=== PATIENT | male | born 1945 | race Caucasian/White ===

== ENCOUNTER 2019-01-24 11:17 | Observation (INO) | payer OTHER, MEDICARE ==
--- NOTE | 2019-01-24 11:54 | RAD REPORT ---
EXAM DESCRIPTION: RAD - Chest Single View - 01/24/2019 11:40 am CLINICAL HISTORY: CHEST PAIN Chest pain. COMPARISON: CHEST PA AND LAT 2 VIEW dated 10/02/2014; CHEST PA AND LAT 2 VIEW dated 04/07/2014; CHEST SINGLE VIEW dated 02/07/2013; CHEST PA AND LAT 2 VIEW dated 05/18/2006 FINDINGS: Portable technique limits examination quality. Mild bilateral pulmonary opacities are present likely representing pulmonary edema. The heart is mild ly enlarged in size. No displaced fractures.Sternotomy wires present. IMPRESSION: Mild CHF.
[2019-01-24 12:14] LABS: Absolute Lymphocytes (CBC) 1.4 K/uL (0.7-4.9); Hematocrit 43.4 % (39.6-49.0); Lymphocytes % 13.4 % (15.3-44.8); RBC Red Blood Cell Count 4.89 M/uL (4.33-5.43)
[2019-01-24 12:22] LABS: Protime INR 1.01
[2019-01-24 12:45] LABS: Albumin 3.5 g/dL (3.4-5.0); Bilirubin Direct 0.4 mg/dL (0-0.2); Bilirubin Total 2.2 mg/dL (0.2-1.0); Magnesium 2.2 mg/dL (1.8-2.4); Potassium 3.7 mmol/L (3.5-5.1); Protein, Total 6.8 g/dL (6.4-8.2); Troponin (Emerg Dept Use Only) 0.02 ng/mL (0.0-0.045)
--- NOTE | 2019-01-24 13:34 | EKG ---
Test Date: 2019-01-24 Test Time: 11:32:11 Form Grader: JEANNE MEASUREMENT RESULTS: Intervals: Rate: 49 NH: 196 QRSD: 134 QT: 486 QTc: 439 [place]: P: 58 NH: 196 QRS: 117 T: 23 INTERPRETIVE STATEMENTS: Marked sinus bradycardia Nonspecific intraventricular block Lateral infarct, age undetermined Abnormal ECG Compared to ECG 03/08/2015 02:58:34 Myocardial infarct finding now present Incomplete right bundle-branch block no longer present ST (T wave) deviation no longer present Possible ischemia no longer present Electronically Signed On 01-24-19 13:33:56 CDT by Daniele Manriquez
--- NOTE | 2019-01-24 13:54 | ER ---
Nurse's Notes [facility] Name: Kaleb Bullock Age: 73 yrs Sex: Male : 1945 Arrival Date: 01/24/2019 Time: 11:17 Bed 19 Private MD: Diagnosis: Hypertensive urgency, Chest pain, bradycardia, CHF, renal failure Presentation: 01/24 11:18 Presenting complaint: Patient states: "i just came from my PCP and they sent me here due to my hi blood pressure, but i also have chest tightness that started this morning" denies SOB; denies N/V;. Transition of care: patient was not received from another setting of care. Onset of symptoms was January 24, 2019. Risk Assessment: Do you want to hurt yourself or someone else? Patient reports no desire to harm self or others. Initial Sepsis Screen: Does the patient meet any 2 criteria? No. Patient's initial sepsis screen is negative. Does the patient have a suspected source of infection? No. Patient's initial sepsis screen is negative. Care prior to arrival: None. 11:18 Method Of Arrival: Ambulatory 11:18 Acuity: ALEXA 3 hj Historical: - Allergies: 11:22 No Known Drug Allergies; hj - PMHx: 11:22 Hypertension; hj - PSHx: 11:22 CABG; Cholecystectomy; rotator cuff; hj - Immunization history:: Adult Immunizations unknown. - Social history:: Smoking status: Patient/guardian denies using tobacco. - Ebola Screening: : No symptoms or risks identified at this time. Screenin:40 Abuse screen: Denies threats or abuse. Denies injuries from another. Nutritional ph screening: No deficits noted. Tuberculosis screening: No symptoms or risk factors identified. Fall Risk None identified. Assessment: 11:37 General: Appears in no apparent distress. comfortable, well groomed, Behavior is calm, ph cooperative, appropriate for age, Denies fever, feeling ill. Pain: Complains of pain in left lateral anterior chest Pain does not radiate. Neuro: Level of Consciousness is awake, alert, obeys commands, Oriented to person, place, time, situation, Moves all extremities. Full function Speech is normal, Facial symmetry appears normal, Denies weakness blurred vision dizziness, headache. Cardiovascular: Reports chest pain, Denies lightheadedness, nausea, palpitations, shortness of breath, Capillary refill < 3 seconds in bilateral fingers Patient's skin is warm and dry. Rhythm is sinus bradycardia Chest pain is located in left lateral chest. Respiratory: Airway is patent Respiratory effort is even, unlabored, Respiratory pattern is regular, symmetrical, Denies shortness of breath. GI: No signs and/or symptoms were reported involving the gastrointestinal system. EENT: Reports nasal congestion. Derm: Skin is intact, is healthy with good turgor, Skin is pink, warm \\T\\ dry. Musculoskeletal: Circulation, motion, and sensation intact. Range of motion: intact in all extremities. 12:30 Reassessment: Patient appears in no apparent distress at this time. Patient and/or ph family updated on plan of care and expected duration. Pain level reassessed. Patient is alert, oriented x 3, equal unlabored respirations, skin warm/dry/pink. 13:30 Reassessment: Patient appears in no apparent distress at this time. Patient and/or ph family updated on plan of care and expected duration. Pain level reassessed. Patient is alert, oriented x 3, equal unlabored respirations, skin warm/dry/pink. 14:00 Reassessment: Patient appears in no apparent distress at this time. Patient and/or ph family updated on plan of care and expected duration. Pain level reassessed. Patient is alert, oriented x 3, equal unlabored respirations, skin warm/dry/pink. Dr Dobbins at bedside to speak w/ pt about being admitted to hospital, pt states, " Well I don't want to stay, I feel fine and want to go home. Watch my blood pressure was fine but now it'll go up again because I'm pissed off." BP noted to have increased to 190s systolic, up from 150s. 14:30 Reassessment: Patient appears in no apparent distress at this time. Patient and/or ph family updated on plan of care and expected duration. Pain level reassessed. Patient is alert, oriented x 3, equal unlabored respirations, skin warm/dry/pink. Repeat troponin drawn and sent to lab, pt again states that he does not wish to be admitted, ERP notified. 16:00 Reassessment: Patient appears in no apparent distress at this time. Patient and/or ph family updated on plan of care and expected duration. Pain level reassessed. Patient is alert, oriented x 3, equal unlabored respirations, skin warm/dry/pink. Dr Malin at bedside to speak w/ pt, pt agrees to be admitted for further testing. 17:16 Reassessment: Patient appears in no apparent distress at this time. Patient and/or ph family updated on plan of care and expected duration. Pain level reassessed. Patient is alert, oriented x 3, equal unlabored respirations, skin warm/dry/pink. Attempted to call report to 4th floor, placed on hold > 5 minutes, will attempt again. 17:50 Reassessment: Patient appears in no apparent distress at this time. Patient and/or ph family updated on plan of care and expected duration. Pain level reassessed. Patient is alert, oriented x 3, equal unlabored respirations, skin warm/dry/pink. Report called to Maribel GOODWIN. Vital Signs: 11:22 BP 190 / 96; Pulse 50; Resp 18; Temp 99.2(TE); Pulse Ox 97% on R/A; Weight 83.91 kg; hj Height 5 ft. 8 in. (172.72 cm); Pain 0/10; 12:30 BP 165 / 69; Pulse 50; Resp 18; Pulse Ox 97% on R/A; ph 13:16 BP 153 / 67; Pulse 49; Resp 18; Pulse Ox 98% on R/A; ph 14:15 BP 191 / 74; Pulse 48; Resp 18; Pulse Ox 97% on R/A; ph 14:55 BP 175 / 71; Pulse 48; Resp 16; Pulse Ox 98% on R/A; ph 16:00 BP 181 / 70; Pulse 50; Resp 18; Temp 97.8; Pulse Ox 97% on R/A; ph 17:00 BP 178 / 72; Pulse 49; Resp 16; Temp 97.8; Pulse Ox 96% on R/A; ph 11:22 Body Mass Index 28.13 (83.91 kg, 172.72 cm) Vitals: 14:15 Cardiac Rhythm Assessment Sinus belinda. ph ED Course: 11:17 Patient arrived in ED. dl4 11:21 Triage completed. hj 11:22 Fritz Malin MD is Attending Physician. kdr 11:22 Arm band placed on left wrist. hj 11:24 Salma Cormier, CHRISTA is Primary Nurse. ph 11:32 EKG done, by injection maintenance technician. reviewed by Fritz Malin MD. sm3 11:37 Inserted saline lock: 20 gauge in right forearm, using aseptic technique. ph 11:38 X-ray completed. Portable x-ray completed in exam room. Patient tolerated procedure sw well. 11:43 XRAY Chest (1 view) In Process Unspecified. EDMS 13:52 Theron Dobbins MD is Hospitalizing Provider. kdr 17:14 Patient has correct armband on for positive identification. Placed in gown. Bed in low ph position. Call light in reach. Side rails up X2. equipment monitor phototypesetting on. Pulse ox on. NIBP on. Door closed. Noise minimized. Warm blanket given. Head of bed elevated. 17:15 No provider procedures requiring assistance completed. Patient admitted, IV remains in ph place. Administered Medications: No medications were administered Outcome: 13:53 Decision to Hospitalize by Provider. kdr 17:15 Admitted to Tele accompanied by tech, via wheelchair, room 407, with chart. ph 17:15 Condition: stable 18:03 Patient left the ED. ph Signatures: Dispatcher [employer] EDMS Fritz Malin MD MD kdr Hall, Patricia RN RN Katia Brasher Henry, RN RN Aida Milan 3 Bandar Martinez dl4 Corrections: (The following items were deleted from the chart) 11:24 11:22 Pulse 50bpm; Resp 18bpm; Pulse Ox 97% RA; Temp 99.2F Temporal; 83.91 kg; Height 5 hj ft. 8 in.; BMI: 28.1; Pain 0/10; hj
--- NOTE | 2019-01-24 13:54 | EDPHYS ---
Physician Documentation [facility] Name: Kaleb Bullock Age: 73 yrs Sex: Male : 1945 Arrival Date: 01/24/2019 Time: 11:17 Bed 19 Private MD: ED Physician Fritz Malin HPI: 01/24 13:54 This 73 yrs old Male presents to ER via Ambulatory with complaints of Chest kdr Pain. 13:54 The patient or guardian reports chest pain that is located primarily in the anterior kdr chest wall, left. Onset: suddenly, today. The pain does not radiate. Associated signs and symptoms: The patient has no apparent associated signs or symptoms. The chest pain is described as burning, sharp. Duration: The patient or guardian reports a single episode, that lasted 30 minute(s). Modifying factors: The symptoms are alleviated by nothing. the symptoms are aggravated by nothing. Severity of pain: At its worst the pain was severe in the emergency department the pain has resolved. The patient has not experienced similar symptoms in the past. 13:54 When the patient presented to [facility], his SBP was over 200 and he was sent to the [facility] ED. Dr. Dobbins called at the time of his arrival. Historical: - Allergies: 11:22 No Known Drug Allergies; hj - PMHx: 11:22 Hypertension; hj - PSHx: 11:22 CABG; Cholecystectomy; rotator cuff; hj - Immunization history:: Adult Immunizations unknown. - Social history:: Smoking status: Patient/guardian denies using tobacco. - Ebola Screening: : No symptoms or risks identified at this time. ROS: 13:54 Constitutional: Negative for fever, chills, and weight loss, Eyes: Negative for injury, kdr pain, redness, and discharge, ENT: Negative for injury, pain, and discharge, Neck: Negative for injury, pain, and swelling, Respiratory: Negative for shortness of breath, cough, wheezing, and pleuritic chest pain, Abdomen/GI: Negative for abdominal pain, nausea, vomiting, diarrhea, and constipation, Back: Negative for injury and pain, : Negative for injury, bleeding, discharge, and swelling, MS/Extremity: Negative for injury and deformity, Skin: Negative for injury, rash, and discoloration, Neuro: Negative for headache, weakness, numbness, tingling, and seizure activity. Psych: Negative for depression, anxiety, suicide ideation, homicidal ideation, and hallucinations, Allergy/Immunology: Negative for hives, rash, and allergies, Endocrine: Negative for neck swelling, polydipsia, polyuria, polyphagia, and marked weight changes, Hematologic/Lymphatic: Negative for swollen nodes, abnormal bleeding, and unusual bruising. Exam: 13:54 Constitutional: This is a well developed, well nourished patient who is awake, alert, kdr and in no acute distress. Head/Face: Normocephalic, atraumatic. Eyes: Pupils equal round and reactive to light, extra-ocular motions intact. Lids and lashes normal. Conjunctiva and sclera are non-icteric and not injected. Cornea within normal limits. Periorbital areas with no swelling, redness, or edema. Neck: Trachea midline, no thyromegaly or masses palpated, and no cervical lymphadenopathy. Supple, full range of motion without nuchal rigidity, or vertebral point tenderness. No Meningismus. Cardiovascular: Regular rate and rhythm with a normal S1 and S2. No gallops, murmurs, or rubs. Normal PMI, no JVD. No pulse deficits. Respiratory: Lungs have equal breath sounds bilaterally, clear to auscultation and percussion. No rales, rhonchi or wheezes noted. No increased work of breathing, no retractions or nasal flaring. Abdomen/GI: Soft, non-tender, with normal bowel sounds. No distension or tympany. No guarding or rebound. No evidence of tenderness throughout. Back: No spinal tenderness. No costovertebral tenderness. Full range of motion. Skin: Warm, dry with normal turgor. Normal color with no rashes, no lesions, and no evidence of cellulitis. MS/ Extremity: Pulses equal, no cyanosis. Neurovascular intact. Full, normal range of motion. Neuro: Awake and alert, GCS 15, oriented to person, place, time, and situation. Cranial nerves II-XII grossly intact. Motor strength 5/5 in all extremities. Sensory grossly intact. Cerebellar exam normal. Normal gait. Psych: Awake, alert, with orientation to person, place and time. Behavior, mood, and affect are within normal limits. 13:54 Chest/axilla: Inspection: normal, Palpation: is normal, Axilla: are normal. Vital Signs: 11:22 BP 190 / 96; Pulse 50; Resp 18; Temp 99.2(TE); Pulse Ox 97% on R/A; Weight 83.91 kg; hj Height 5 ft. 8 in. (172.72 cm); Pain 0/10; 12:30 BP 165 / 69; Pulse 50; Resp 18; Pulse Ox 97% on R/A; ph 13:16 BP 153 / 67; Pulse 49; Resp 18; Pulse Ox 98% on R/A; ph 14:15 BP 191 / 74; Pulse 48; Resp 18; Pulse Ox 97% on R/A; ph 14:55 BP 175 / 71; Pulse 48; Resp 16; Pulse Ox 98% on R/A; ph 16:00 BP 181 / 70; Pulse 50; Resp 18; Temp 97.8; Pulse Ox 97% on R/A; ph 17:00 BP 178 / 72; Pulse 49; Resp 16; Temp 97.8; Pulse Ox 96% on R/A; ph 11:22 Body Mass Index 28.13 (83.91 kg, 172.72 cm) hj MDM: 11:20 Physician consultation: Theron Dobbins MD was called at 11:15, was contacted at 11:15, snw would like consultation with Cardiology, Dr. Dobbins saw pt in his office this am. +HTN, cardiac hx. Request pt be admitted with consult to cardiology. 13:53 Patient medically screened. kdr 13:54 HEART Score: History: Moderately Suspicious (1), ECG: Non specific repolarization kdr disturbance / LBTB / PM (1), Age: > or = 65 years (2), Risk Factors: 1 or 2 risk factors (1), [Hypertension]. Data reviewed: vital signs, nurses notes. 01/24 11:20 Order name: Basic Metabolic Panel; Complete Time: 13:22 snw 01/24 11:20 Order name: CBC with Diff; Complete Time: 13:22 snw 01/24 11:20 Order name: LFT's; Complete Time: 13:22 snw 01/24 11:20 Order name: Magnesium; Complete Time: 13:22 snw 01/24 11:20 Order name: NT PRO-BNP; Complete Time: 13:22 w 01/24 11:20 Order name: PT-INR; Complete Time: 13:22 snw 01/24 11:20 Order name: Troponin (emerg Dept Use Only); Complete Time: 13:22 snw 01/24 13:23 Order name: Troponin (emerg Dept Use Only); Complete Time: 15:51 kdr 01/24 16:07 Order name: Hemoglobin A1c [facility] 01/24 16:07 Order name: Lipid Profile [facility] 01/24 16:07 Order name: Troponin I [facility] 01/24 16:07 Order name: Thyroid Stimulating Hormone [facility] 01/24 16:07 Order name: CBC with Automated Diff [facility] 01/24 16:08 Order name: CBC with Automated Diff EDMS 01/24 11:20 Order name: XRAY Chest (1 view); Complete Time: 13:22 w 01/24 11:20 Order name: EKG; Complete Time: 11:24 01/24 11:20 Order name: Cardiac monitoring; Complete Time: 11:30 w 01/24 11:20 Order name: EKG - Nurse/Tech; Complete Time: 11:30 w 01/24 11:20 Order name: IV Saline Lock; Complete Time: 11:36 w 01/24 11:20 Order name: Labs collected and sent; Complete Time: 11:37 w 01/24 11:20 Order name: O2 Per Protocol; Complete Time: 11:30 w 01/24 11:20 Order name: O2 Sat Monitoring; Complete Time: 11:30 w 01/24 16:11 Order name: CONS Physician Consult [facility]MI 01/24 16:08 Order name: CBC with Automated Diff [facility] 01/24 16:08 Order name: CBC with Automated Diff [facility] 01/24 16:08 Order name: Comprehensive Metabolic Panel [facility] 01/24 16:08 Order name: Comprehensive Metabolic Panel [facility] 01/24 16:08 Order name: Comprehensive Metabolic Panel [facility] 01/24 16:08 Order name: Comprehensive Metabolic Panel [facility] Administered Medications: No medications were administered Disposition: 13:52 Co-signature as Attending Physician, Fritz Malin MD I agree with the assessment and kdr plan of care. Disposition: 01/24/19 13:53 Hospitalization ordered by Theron Dobbins for Inpatient Admission. Preliminary diagnosis is Hypertensive urgency, Chest pain, bradycardia, CHF, renal failure. - Bed requested for Telemetry/MedSurg (Inpatient). - Status is Inpatient Admission. ph - Condition is Fair. - Problem is new. - Symptoms have improved. UTI on Admission? No Signatures: Dispatcher [employer] EDMS Aliza cope Fritz Henson MD MD [facility] Reina Pacheco, BEADING INSTALLER-C BEADING INSTALLER-Csnw Salma Cormier, RN RN Suhail Cruz RN RN Corrections: (The following items were deleted from the chart) 16:50 13:53 Hospitalization Ordered by Theron Dobbins MD for Inpatient Admission. Preliminary bd diagnosis is Hypertensive urgency, Chest pain, bradycardia, CHF, renal failure. Bed requested for Telemetry/MedSurg (Inpatient). Status is Inpatient Admission. Condition is Fair. Problem is new. Symptoms have improved. UTI on Admission? No. kdr 18:03 16:50 01/24/2019 13:53 Hospitalization Ordered by Theron Dobbins MD for Inpatient ph Admission. Preliminary diagnosis is Hypertensive urgency, Chest pain, bradycardia, CHF, renal failure. Bed requested for Telemetry/MedSurg (Inpatient). Status is Inpatient Admission. Condition is Fair. Problem is new. Symptoms have improved. UTI on Admission? No. bd
--- NOTE | 2019-01-24 16:26 | P.HP ---
Certification for Inpatient Patient admitted to: Inpatient With expected LOS: >2 Midnights Patient will require the following post-hospital care: None Practitioner: I am a practitioner with admitting privileges, knowledge of patient current condition, hospital course, and medical plan of care. Services: Services provided to patient in accordance with Admission requirements found in Title 42 Section 412.3 of the Code of Federal Regulations Patient History Date of Service: 01/24/19 Primary Care Provider: Giovana [facility]ales Reason for admission: unstable Angina History of Present Illness: Patient of [facility]. Past history of cad with 5 stents and htn. He was seeing elevated bp at home. The patient came to the office. He was also having left sided chest pain. He was found to have a blood pressure of 210/86 An luba was taken in the office and was borderline. Some widening of the qrs. Was sent to the Emergency room. He had objections, however the friend who brought him to the hospital was agreeable. The patient was found to have an elevated bnp and creatine. He was also bradycardic in the ER. staying in the 40's. he had a HR o 59 in the office. Discussed with Dr. Irizarry and decided to admit for cardiology and possible stress test. The patient did not seem to want to do this again. Allergies No Known Drug Allergies Allergy (Unverified 03/15/15 10:27) Unknown Review of Systems 10-point ROS is otherwise unremarkable Cardiovascular: Chest Pain Physical Examination - Physical Exam General: Alert, Mild distress HEENT: Atraumatic, PERRLA, Mucous membr. moist/pink, EOMI, Sclerae nonicteric Neck: Supple, 2+ carotid pulse no bruit, No LAD, Without JVD or thyroid abnormality Respiratory: Clear to auscultation bilaterally, Normal air movement Cardiovascular: Regular rate/rhythm, Normal S1 S2 Gastrointestinal: Normal bowel sounds, No tenderness Musculoskeletal: No tenderness Integumentary: No rashes Neurological: Normal gait, Normal speech, Normal strength at 5/5 x4 extr, Normal tone, Normal affect Lymphatics: No axilla or inguinal lymphadenopathy - Studies Laboratory Data (last 24 hrs) 01/24/19 11:35: PT 11.9, INR 1.01 01/24/19 11:35: WBC 10.3, Hgb 15.1, Hct 43.4, Plt Count 166 01/24/19 11:35: Sodium 145, Potassium 3.7, BUN 27 H, Creatinine 1.42 H, Glucose 114 H, Magnesium 2.2, Total Bilirubin 2.2 H, AST 23, ALT 27, Alkaline Phosphatase 136 H Assessment and Plan - Problems (Diagnosis) (1) Unstable angina Current Visit: Yes Status: Acute Plan: Will admit to the hospital. Hold the betablockers due to the bradycardia. Start lovenox and consult cardiology. (2) HTN (hypertension) Current Visit: Yes Status: Acute Plan: will substitute diovan for olemasartan. Hold the carvedilol due to the bradycardia. Will adjust as necesary. Qualifiers: Hypertension type: essential hypertension Qualified Code(s): I10 - Essential (primary) hypertension (3) Nicotine addiction Current Visit: Yes Status: Acute Plan: will start a nicotine patch in the morning. Will hold off tonight as he may be having an acute coronary syndrome. Qualifiers: Nicotine product type: cigarettes Discharge Plan: Home Plan to discharge in: 48 Hours - Advance Directives Does patient have a Living Will: No Does patient have a Durable POA for Healthcare: No - Code Status/Comfort Care Code Status Assessed: No Code Status: Full Code Physician Review: Patient Assessed, Agree with Above Assessment and Plan Critical Care: No Time Spent Managing Pts Care (In Minutes): 75
[2019-01-24] MEDS: ENOXAPARIN 80 MG/0.8 ML SQ SCH (18:00)
[2019-01-24] MEDS ORDERED: CARVEDILOL 12.5 MG TAB PO SCH (18:00)
[2019-01-24 18:29] VITALS: O2SAT 97
[2019-01-24] MEDS ORDERED: HYDRALAZINE HCL 20 MG/ML VIAL IV PRN (20:33)
[2019-01-25 00:21] VITALS: BMI 28.0
[2019-01-25 02:32] LABS: Urine Appearance CLEAR; Urine Bilirubin NEGATIVE (NEG); Urine Blood NEGATIVE (NEG); Urine Color YELLOW; Urine Glucose NEGATIVE (NEG); Urine Protein 1+ (NEG); Urine Urobilinogen 0.2 mg/dL (0.2-1.0)
[2019-01-25 03:08] LABS: Urine Microscopic Reflex ORDER UMIC
[2019-01-25 03:52] LABS: Urine Bacteria <20 /HPF (NONE SEEN); Urine Culture Reflex Order REFLEXED; Urine RBC <5 /HPF (NONE SEEN)
[2019-01-25] MEDS: ENOXAPARIN 80 MG/0.8 ML SQ SCH (05:59)
[2019-01-25 06:12] LABS: Absolute Lymphocytes (CBC) 1.5 K/uL (0.7-4.9); Basophils % 1.3 % (0-1.3); Hematocrit 40.1 % (39.6-49.0); Lymphocytes % 16.9 % (15.3-44.8); RBC Red Blood Cell Count 4.56 M/uL (4.33-5.43)
[2019-01-25 06:38] LABS: Albumin 3.2 g/dL (3.4-5.0); Bilirubin Total 2.6 mg/dL (0.2-1.0); Potassium 3.8 mmol/L (3.5-5.1); Protein, Total 6.3 g/dL (6.4-8.2); Thyroid Stimulating Hormone 0.328 uIU/mL (0.360-3.740)
--- NOTE | 2019-01-25 08:43 | P.DS ---
Admission Date: 01/24/19 Discharge Date: 01/25/19 Primary Care Provider: Giovana Morales Disposition: ROUTINE DISCHARGE Discharge Condition: FAIR Reason for Admission: unstable Angina - Problems (1) Unstable angina Current Visit: Yes Status: Acute (2) HTN (hypertension) Current Visit: Yes Status: Acute Qualifiers: Hypertension type: essential hypertension Qualified Code(s): I10 - Essential (primary) hypertension (3) Nicotine addiction Current Visit: Yes Status: Acute Qualifiers: Nicotine product type: cigarettes Brief History of Present Illness: Patient of Bry Morales. Past history of cad with 5 stents and htn. He was seeing elevated bp at home. The patient came to the office. He was also having left sided chest pain. He was found to have a blood pressure of 210/86 An luba was taken in the office and was borderline. Some widening of the qrs. Was sent to the Emergency room. He had objections, however the friend who brought him to the hospital was agreeable. The patient was found to have an elevated bnp and creatine. He was also bradycardic in the ER. staying in the 40's. he had a HR o 59 in the office. Discussed with Dr. Irizarry and decided to admit for cardiology and possible stress test. The patient did not seem to want to do this again. Hospital Course: admitted to the hospital. Had negative troponins. Seen by Dr. Rivera. Plan for an out patient follow up with Cardiology. He is not very complaint. Will need a Solid Waste Disposal Manager close to him. Will reduce the coreg from 12.5 to 3.125mg and have the patient follow up with Bry Morales. Thank you for allowing me to take part in the patient's care. Vital Signs/Physical Exam: Temp Pulse Resp BP Pulse Ox 97.6 F 47 L 16 167/91 H 97 01/25/19 07:37 01/25/19 07:37 01/25/19 07:37 01/25/19 07:37 01/25/19 07:37 General: Alert, In no apparent distress HEENT: Atraumatic, PERRLA, EOMI Neck: Supple, JVD not distended Respiratory: Clear to auscultation bilaterally, Normal air movement Cardiovascular: Regular rate/rhythm, Normal S1 S2 Gastrointestinal: Normal bowel sounds, No tenderness Musculoskeletal: No tenderness Integumentary: No rashes Neurological: Normal speech, Normal tone, Normal affect Lymphatics: No axilla or inguinal lymphadenopathy Laboratory Data at Discharge: WBC 9.1 K/uL (4.3-10.9) 01/25/19 05:39 Hgb 13.9 g/dL (13.6-17.9) 01/25/19 05:39 Hct 40.1 % (39.6-49.0) 01/25/19 05:39 Plt Count 149 K/uL (152-406) L 01/25/19 05:39 PT 11.9 SECONDS (9.5-12.5) 01/24/19 11:35 INR 1.01 01/24/19 11:35 Sodium 146 mmol/L (136-145) H 01/25/19 05:39 Potassium 3.8 mmol/L (3.5-5.1) 01/25/19 05:39 BUN 22 mg/dL (7-18) H 01/25/19 05:39 Creatinine 1.21 mg/dL (0.55-1.3) 01/25/19 05:39 Glucose 92 mg/dL (74-106) 01/25/19 05:39 Magnesium 2.2 mg/dL (1.8-2.4) 01/24/19 11:35 Total Bilirubin 2.6 mg/dL (0.2-1.0) H 01/25/19 05:39 AST 21 U/L (15-37) 01/25/19 05:39 ALT 28 U/L (12-78) 01/25/19 05:39 Alkaline Phosphatase 78 U/L (45-117) 01/25/19 05:39 Troponin I 0.02 ng/mL (0.0-0.045) 01/24/19 20:28 Triglycerides 80 mg/dL (<150) 01/25/19 05:39 Cholesterol 122 mg/dL (<200) 01/25/19 05:39 HDL Cholesterol 38 mg/dL (40-60) L 01/25/19 05:39 Cholesterol/HDL Ratio 3.21 01/25/19 05:39 Home Medications: Carvedilol [Coreg*] 3.125 mg PO BID #60 tab 01/25/19 New Medications: Carvedilol [Coreg*] 3.125 mg PO BID #60 tab Diet: AHA Activity: Ad fortunato Time spent managing pt's care (in minutes): 30
[2019-01-25] MEDS ORDERED: ASPIRIN EC 81 MG TAB PO SCH (09:00)
[2019-01-25] MEDS ORDERED: VALSARTAN 80 MG TAB PO SCH (09:00)
[2019-01-25 12:37] VITALS: BP 168/88; TEMP 97
--- NOTE | 2019-01-25 13:54 | CON ---
History Of Present Illness: A 73-year-old man came to the hospital because his blood pressure was el evated. He was not feeling bad, really did not want to come. He has a remote history of bypass surg benjamin at least 15 years ago. It was done at a hospital in the [facility]. We have no records. Since then, he has had very little followup. He does take a blood pressure medicine at home. I thi nk carvedilol is his only medicine. It is 12.5 b.i.d. and probably should be changed to a lower dose with the addition of other medicine to control his blood pressure. He is not on a statin, not takin g aspirin. He saw a trial management associate and decided not to go back and see that trial management associate, but has not m serafin any appointments to see. Another heart doctor encouraged him to have regular followup. Ideally, he would be on aspirin and a statin, probably an angiotensin receptor william and a very low dose of beta-william in order to have a better prognosis long-term regarding his CAD. Social History: He does not use any tobacco or alcohol or illegal drugs. Allergies: NO DRUG ALLERGIES. Medications: His only prescribed medicine is Coreg 12.5 b.i.d. Physical Examination: General: He is alert, oriented, pleasant. Vital Signs: Blood pressure is still 167/91, heart rate 47. HEENT: Normal. Lungs: Clear. Extremities: Palpable distal pulses. Trace edema. Impression: I think he should be on valsartan 160, Coreg 3.125 b.i.d. We could empirically start a statin. Although, he has not had a lipid profile as of yet. Even if his lipids are in really good s hape, he should be on at least a low-dose statin because of his previous history of bypass surgery an d he wishes to come to see me in followup per Dr. Manriquez, he is welcome to, but he really should have long-term followup with Cardiology at [facility] once a year. NAOMI/JACQUE Voice ID: [id number] Report ID: [id number]
== END 2019-01-25 12:47 | disposition home or self-care (01) ==
LOC: ER 11:17 → INTOOBSV 16:04 → ERHOLD 16:04 → 4TH 17:53
PROVIDERS: ADMIT Internal Medicine; ATTEND Internal Medicine
DX: I25.110 Atherosclerotic heart disease of native coronary artery with unstable angina pectoris (principal); I13.0 Hypertensive heart and chronic kidney disease with heart failure and stage 1 through stage 4 chronic kidney disease, or unspecified chronic kidney disease; I50.9 Heart failure, unspecified; N18.9 Chronic kidney disease, unspecified; R00.1 Bradycardia, unspecified; F17.210 Nicotine dependence, cigarettes, uncomplicated; Z95.5 Presence of coronary angioplasty implant and graft; Z95.1 Presence of aortocoronary bypass graft
CPT/HCPCS: 93005; 87088; 85025 ×2; 87086; 80048; 36415; 83735; 85610; 80061; 80076; 84443; 83036; 84484 ×3; 80053; 83880; 71045; 99285; J0360; G0378 ×2; 81003; 81015; J1650